=== PATIENT | female | born 1965 | race Caucasian/White ===

== ENCOUNTER → 2018-10-10 | Outpatient (REF) | payer OTHER | LOC: M SFHCLERA 12:08 | PROVIDERS: ATTEND Nurse Practitioner Family | DX: J02.9 Acute pharyngitis, unspecified (principal) ==

== ENCOUNTER → 2018-10-14 | Outpatient (CLI) | payer OTHER ==
--- NOTE | 2018-10-14 10:49 | REP ---
A chest x-ray: Two views. History: Cough. No comparison study. Findings: Left hemidiaphragm is elevated. There are increased markings in the left lung base. Right lung is clear. Pleural angles are sharp. Heart is not felt to be enlarged. Pulmonary vasculature is not increased. Impression: Elevated left hemidiaphragm. Increased markings left base may be an infiltrate and/or atelectasis. Otherwise no acute disease. Electronically Signed by David Palmer MD 10/14/2018 10:40 A
== END ==
LOC: M LRY 10:10
PROVIDERS: ATTEND Nurse Practitioner Family
DX: R05 Cough (principal)
CPT/HCPCS: 71046; G0463